=== PATIENT | female | born 1960 | race Caucasian/White ===

== ENCOUNTER → 2018-03-21 | Outpatient (CLI) | payer OTHER | LOC: M.RAD 10:34 | DX: M79.641 Pain in right hand (principal) ==

== ENCOUNTER 2019-06-14 13:18 | Emergency (ER) | payer OTHER ==
[~2019-06-14] VITALS: Ht 157.5 cm; Wt 88.5 kg
[2019-06-14 13:21] VITALS: BP 199/102
--- NOTE | 2019-06-15 12:29 | EKG ---
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
== END 2019-06-14 13:30 | disposition left against medical advice (07) ==
LOC: M.ERS 13:18
DX: R07.9 Chest pain, unspecified (principal)